=== PATIENT | male | born 1935 | race Caucasian/White ===

== ENCOUNTER 2018-11-03 10:44 | Emergency (ER) | payer MEDICARE, BC ==
--- NOTE | 2018-11-03 11:38 | Emergency Department Record ---
History of Present Illness - General Chief complaint: Extremity Problem Stated complaint: RT BIG TOE SWOLLEN Time Seen by Provider: 11/03/18 10:57 Source: Patient Mode of Arrival: Ambulatory Limitations: No limitations - History of Present Illness Initial comments: pt had a knee replacement 6 wks ago. he continues to have swelling and pain of the entire leg and nor his r toe is swollen, hot, red and tender MD Complaint: Extremity pain, Extremity swelling, Joint pain, Joint swelling Onset/Timin -: Days(s) Location: Right, Foot History of Same: No Severity scale (1-10): 7 Quality: Sharp Consistency: Intermittent Improves with: Nothing Worsens with: Nothing Associated Symptoms: Denies other symptoms - Related Data Previous Rx's Medication Instructions Recorded Cephalexin [Keflex] 500 mg PO TID #21 cap 11/03/18 Hydrocodone/Acetaminophen [[place] 1 each PO Q6HR #10 tablet 11/03/18 5-325 Tablet] Allergies Allergy/AdvReac Type Severity Reaction Status Date / Time No Known Drug Allergies Allergy Verified 11/03/18 10:48 Travel Screening - Travel/Exposure Within Last 30 Days Have you traveled within the last 30 days?: No - Travel/Exposure Within Last Year Have you traveled outside the [place] in the last year?: No - Additonal Travel Details Have you been exposed to anyone with a communicable illness?: No - Travel Symptoms Symptom Screening: None Review of Systems Reviewed: No additional complaints except as noted below Constitutional: Reports: As per HPI. Denies: Chills, Fever, Malaise, Night sweats, Weakness, Weight change Eyes: Reports: As per HPI. Denies: Eye discharge, Eye pain, Photophobia, Vision change ENT: Reports: As per HPI. Denies: Congestion, Dental pain, Ear pain, Epistaxis, Hearing loss, Throat pain Respiratory: Reports: As per HPI. Denies: Cough, Dyspnea, Hemoptysis, Stridor, Wheezes Cardiovascular: Reports: As per HPI. Denies: Arrhythmia, Chest pain, Dyspnea on exertion, Edema, Murmurs, Orthopnea, Palpitations, Paroxysmal nocturnal dyspnea, Rheumatic Fever, Syncope Endocrine: Reports: As per HPI. Denies: Fatigue, Heat or cold intolerance, Polydipsia, Polyuria Gastrointestinal: Reports: As per HPI. Denies: Abdominal pain, Constipation, Diarrhea, Hematemesis, Hematochezia, Melena, Nausea, Vomiting Genitourinary: Reports: As per HPI. Denies: Dysuria, Frequency, Hematuria, Incontinence, Retention, Testicular pain, Testicular mass, Urgency Musculoskeletal: Reports: As per HPI. Denies: Arthralgia, Back pain, Gout, Joint swelling, Myalgia, Neck pain Skin: Reports: As per HPI. Denies: Bruising, Change in color, Change in hair/nails, Lesions, Pruritus, Rash Neurological: Reports: As per HPI. Denies: Abnormal gait, Confusion, Headache, Numbness, Paresthesias, Seizure, Tingling, Tremors, Vertigo, Weakness Psychiatric: Reports: As per HPI. Denies: Anxiety, Auditory hallucinations, Depression, Homicidal thoughts, Suicidal thoughts, Visual hallucinations Hematological/Lymphatic: Reports: As per HPI. Denies: Anemia, Blood Clots, Easy bleeding, Easy bruising, Swollen glands Past Medical History - SOCIAL HISTORY Smoking Status: Former smoker Alcohol Use: Occasional Drug Use: None - RESPIRATORY Hx Respiratory Disorders: Yes Comment:: blood clot in lungs. - CARDIOVASCULAR Hx Cardio Disorders: No - NEURO Hx Neuro Disorders: No - GI Hx GI Disorders: No - Hx Genitourinary Disorders: Yes Hx Prostate Problems: Yes - ENDOCRINE Hx Endocrine Disorders: No - MUSCULOSKELETAL Hx Musculoskeletal Disorders: Yes Hx Back Injury: Yes - PSYCH Hx Psych Problems: No - HEMATOLOGY/ONCOLOGY Hx Hematology/Oncology Disorders: Yes Hx Clotting Problems: Yes Comment:: blood clots in the left leg and lungs. Family Medical History Any Significant Family History?: Yes Hx Cancer: Father, Brother/Sister Physical Exam - General General Appearance: Alert, Oriented x3, Cooperative, Mild distress - Head Head exam: Normal inspection - Eye Eye exam: Normal appearance, PERRL, EOMI Pupils: Normal accommodation - ENT ENT exam: Normal exam, Mucous membranes moist, Normal external ear exam, Normal orophraynx, TM's normal bilaterally Ear exam: Normal external inspection. negative: External canal tenderness Nasal Exam: Normal inspection. negative: Discharge, Sinus tenderness Mouth exam: Normal external inspection, Tongue normal Teeth exam: Normal inspection. negative: Dental caries Throat exam: Normal inspection. negative: Tonsillar erythema, Tonsillar exudate - Neck Neck exam: Normal inspection, Full ROM. negative: Tenderness - Respiratory Respiratory exam: Normal lung sounds bilaterally. negative: Respiratory distress - Cardiovascular Cardiovascular Exam: Regular rate, Normal rhythm, Normal heart sounds - GI/Abdominal GI/Abdominal exam: Soft, Normal bowel sounds. negative: Tenderness - Rectal Rectal exam: Deferred - exam: Deferred - Extremities Extremities exam: Calf tenderness, Full ROM, Normal capillary refill, Tenderness, Other (swelling of entire leg w tendernes. swelling , erythema and tenderness of great toe) - Back Back exam: Reports: Normal inspection, Full ROM. Denies: Muscle spasm, Rash noted, Tenderness - Neurological Neurological exam: Alert, CN II-XII intact, Normal gait, Oriented X3 - Psychiatric Psychiatric exam: Normal affect, Normal mood - Skin Skin exam: Dry, Intact, Normal color, Warm Course Vital Signs 11/03/18 10:55 Temperature 98.1 F Pulse Rate 98 H Respiratory 20 Rate Blood Pressure 173/80 Pulse Ox 93 L i - Reevaluation(s) Reevaluation #1: 11/03/18 13:07 pt is on coumadin and inr is therepeutic Medical Decision Making - Lab Data Result diagrams: 11/03/18 11:30 11/03/18 11:30 Disposition Disposition: Discharge Clinical Impression: Cellulitis Qualifiers: Site of cellulitis: extremity Site of cellulitis of extremity: toe Laterality: right Qualified Code(s): L03.031 - Cellulitis of right toe Disposition: Home, Self-Care Condition: (1) Good Instructions: Cellulitis (ED) Additional Instructions: follow up with family doctor. return sooner if worse. keep elevated. warm soaks Prescriptions: Hydrocodone/Acetaminophen [[place] 5-325 Tablet] 1 each PO Q6HR #10 tablet Cephalexin [Keflex] 500 mg PO TID #21 cap Forms: Patient Portal Access Quality - Quality Measures Quality Measures: N/A - Blood Pressure Screening Does Patient Have Any of the Following: No Blood Pressure Classification: Pre-Hypertensive BP Reading Systolic Measurement: 173 Diastolic Measurement: 80 Screening for High Blood Pressure: < Pre-Hypertensive BP, F/U Documented > [[id number]] Pre-Hypertensive Follow-up Interventions: Follow-up with rescreen every year.
[2018-11-03 11:42] LABS: ABSOLUTE NEUTROPHIL COUNT 5.51; BASO % 0.3 % (0-6); EOS % 6.2 % (0-6); GRAN % 71.6 % (47-80); HEMATOCRIT 38.2 % (42.0-52.0); HEMOGLOBIN 11.7 gm/dl (14.0-18.0); LYMPH % 12.3 % (16-45); MEAN CORPUSCULAR HGB CONC 30.6 g/dl (32-36); MEAN PLATELET VOLUME 9.1 fl (7.4-10.4); MONO % 9.6 % (0-9); PLATELET COUNT 189 K/uL (130-400); RED BLOOD COUNT 4.39 M/uL (4.40-5.70); RED CELL DISTRIBUTION WIDTH 14.9 % (11.5-14.5); WHITE BLOOD COUNT W/O DIFF 7.7 K/uL (4.2-12.2)
[2018-11-03 11:43] LABS: MEAN CORPUSCULAR HEMOGLOBIN 26.6 pg (27-33)
[2018-11-03 11:55] LABS: BLOOD UREA NITROGEN 12 mg/dL (8-23); CREATININE 0.9 mg/dL (0.7-1.2); EST GLOMERULAR FILTRATION RATE > 60 mL/min; INR 2.2; PROTHROMBIN TIME (PATIENT) 22.1 SECONDS (9.5-12.1)
[2018-11-03 11:58] LABS: GLUCOSE,RANDOM 113 mg/dL (74-109)
--- NOTE | 2018-11-04 10:49 | RADIOLOGY REPORT ---
EXAM: RIGHT FIRST DIGIT, THREE VIEWS HISTORY: PATIENT HAS HAD REDNESS AND SWELLING OF THE FIRST RIGHT TOE FOR TWO DAYS. TECHNIQUE: Three views of the right first digit are provided without comparison examinations. FINDINGS: There is no radiographic evidence of a fracture or dislocation of the right first digit. No significant soft tissue abnormalities are visualized. Vascular calcification is noted. No radiopaque foreign bodies are identified. Osteopenia of the osseous structures are noted. 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 JOB NUMBER: [id number] [facility]
== END 2018-11-03 13:14 | disposition home or self-care (01) ==
LOC: ER 10:44
DX: L03.031 Cellulitis of right toe (principal); Z87.891 Personal history of nicotine dependence
CPT/HCPCS: 73660; 80048; 84550; 85025; 85379; 85610; 99283